=== PATIENT | female | born 1945 | race Caucasian/White ===

== ENCOUNTER 2018-01-11 09:07 | Emergency (ER) | payer OTHER ==
[~2018-01-11] VITALS: Ht 165.1 cm; Wt 72.7 kg
[~2018-01-11 09:07] MED LIST: AMLO5TAB2 PO; BENA20TA PO; SERT25TA83 PO
[2018-01-11 09:09] VITALS: BP 143/70; PULSE 88; RESP 16; TEMP 98.7; O2SAT 95
--- NOTE | 2018-01-11 09:19 | PD ---
HPI Chief Complaint: Injury Time Seen by Provider: 09:18 Travel History International Travel<30 days: No Contact w/Intl Traveler<30days: No Traveled to known affect area: No History of Present Illness HPI 72-year-old female came to the emergency room with history of right arm injury last night after she tripped over a blanket on the floor and fell. During the fall she hit her arm on a furniture. Since then she has been in significant pain. She says she has been unable to sleep. Every time she moves her arm the pain is severe. Patient says she took 781 mg aspirins for the pain and about 6 or 7 Advil but has not helped. She tried to ice it but it made the pain worse so she stopped icing it. Patient is otherwise on no blood thinners on a daily basis. She says that she jerked her neck when she fell and the neck has been hurting a little as well but the arm pain is worse. Vital signs are stable. [facility] Past Medical History Narrative Medical List of her past medical, surgical, social and family history is reviewed from the nursing note. Arthritis: Yes Asthma: No Autoimmune Disease: No Blood Disorders: No Anxiety: Yes Depression: No Heart Rhythm Problems: No Cancer: No Cardiovascular Problems: Yes High Cholesterol: Yes Chemotherapy: No Chest Pain: Yes Congestive Heart Failure: No COPD: No Cerebrovascular Accident: No Diabetes: No Endocrine: No GERD: No Glaucoma: No Genitourinary: Yes Hepatitis: No Hiatal Hernia: No Hypertension: Yes Immune Disorder: No Implanted Vascular Access Dvce: No Kidney Stones: No Musculoskeletal: Yes Neurologic: No Psychiatric: Yes Reproductive: No Respiratory: Yes Migraines: No Myocardial Infarction: No Radiation Therapy: No Renal Failure: No Seizures: No Sleep Apnea: No Thyroid Disease: No Ulcer: No ?: Not Past Surgical History Abdominal Surgery: Yes (BLADDER SLING MESH REPAIR) Cardiac Surgery: No Ear Surgery: No Eye Surgery: Yes (CATARACT GRACIE) Genitourinary Surgery: No Gynecologic Surgery: Yes (HYSTERECTOMY) Hysterectomy: Yes Oral Surgery: No Thoracic Surgery: No Other Surgery: Yes Social History Alcohol Use: Yes (OCASSIONALY) Tobacco Use: Yes (1-2 per day) Substance Use: No Allergies-Medications (Allergen,Severity, Reaction): Coded Allergies: morphine (Verified Adverse Reaction, Severe, Nausea/Vomiting, 01/11/18) Comments List of her allergies reviewed from the nursing note. Reported Meds & Prescriptions Reported Meds & Active Scripts Active Colace (Docusate Sodium) 100 Mg Capsule 100 Mg PO BID Hydrocodone-Acetaminophen 5-325 mg Tab 1 Tab PO Q6H PRN 10 Days Reported Sertraline (Sertraline HCl) 25 Mg Tab 25 Mg PO DAILY Benazepril (Benazepril HCl) 20 Mg Tab 20 Mg PO DAILY Amlodipine (Amlodipine Besylate) 5 Mg Tab 5 Mg PO DAILY Narrative Medication List of her home medications reviewed from the nursing note. Review of Systems Except as stated in HPI: all other systems reviewed are Neg Musculoskeletal: Positive: Pain Physical Exam Narrative GENERAL: Awake, alert, moderate distress SKIN: Focused skin assessment warm/dry. HEAD: Atraumatic. Normocephalic. EYES: Pupils equal and round. No scleral icterus. No injection or drainage. ENT: No nasal bleeding or discharge. Mucous membranes pink and moist. NECK: Trachea midline. No JVD. CARDIOVASCULAR: Regular rate and rhythm. No murmur appreciated. RESPIRATORY: No accessory muscle use. Clear to auscultation. Breath sounds equal bilaterally. GASTROINTESTINAL: Abdomen soft, non-tender, nondistended. Hepatic and splenic margins not palpable. MUSCULOSKELETAL: No obvious deformities. No clubbing. No cyanosis. No edema. Swelling mid right arm, decreased range of motion at the shoulder and elbow joint mainly due to the pain. Distal neurovascular bundle intact. NEUROLOGICAL: Awake and alert. No obvious cranial nerve deficits. Motor grossly within normal limits. Normal speech. PSYCHIATRIC: Appropriate mood and affect; insight and judgment normal. Data Data Last Documented VS Orders Orders Humerus (Min 2vws) (01/11/18 ) Shoulder, Complete (>2vws) (01/11/18 ) Acetamin-Hydrocod 325-5 Mg ([place] 5-325 (01/11/18 09:30) Spine, Cervical Compl([id number]) (01/11/18 ) Ondansetron Odt (Zofran Odt) (01/11/18 09:30) Support Splint (01/11/18 10:59) Ed Discharge Order (01/11/18 11:03) Sling Cradle Arm (01/11/18 ) MDM Medical Decision Making Medical Screen Exam Complete: Yes Emergency Medical Condition: Yes Medical Record Reviewed: Yes Differential Diagnosis Shoulder fracture, humerus fracture, elbow fracture, contusion Narrative Course 11:07 PM x-ray of the cervical spine, shoulder and humerus were within acceptable limits with no acute fractures. Patient was medicated for pain. I went back and reassessed her and she said pain was better. I let her know about the test results. I am comfortable discharging her home with an arm sling and pain medication prescription. I verbalized the discharge instructions and patient understood. Her was in the room as well. Procedures EKG Prior to Arrival: No Diagnosis Primary Impression: Contusion of arm, right Qualified Codes: S40.021A - Contusion of right upper arm, initial encounter Referrals: Primary Care Physician Additional Instructions: Take the medication as per the prescription direction. The pain medicine would make you groggy. Take it only if the pain is severe. You could take Advil/ ibuprofen/Motrin for the pain as well. The pain medication will make you constipated. There is stool laxatives prescription as well. Med/Other Pt SpecificInfo: Prescription(s) given Scripts Docusate Sodium (Colace) 100 Mg Capsule 100 MG PO BID for Prevent Constipation, #20 CAP 0 Refills Prov: Dominic Castillo MD 01/11/18 Hydrocodone-Acetaminophen (Hydrocodone-Acetaminophen) 5-325 mg Tab 1 TAB PO Q6H Y for PAIN for 10 Days, #40 TAB 0 Refills Prov: Dominic Castillo MD 01/11/18 Disposition: 01 DISCHARGE HOME Condition: Stable Dominic Castillo MD January 11, 2018 09:19
[2018-01-11] MEDS ORDERED: ONDANSETRON ODT 4 MG TAB PO ONE (09:30)
[2018-01-11] MEDS ORDERED: ACETAMINOPHEN/HYDROcodone 325 MG/5 MG TAB PO ONE (09:30)
--- NOTE | 2018-01-11 10:30 | RADRPT ---
EXAM DATE/TIME: 01/11/2018 09:45 [facility] COMPARISON: No previous studies available for comparison. INDICATIONS : Posterior neck pain after fall. MEDICAL HISTORY : None. SURGICAL HISTORY : Hysterectomy. ENCOUNTER: Initial ACUITY: 2 days PAIN SCORE: 7/10 LOCATION: c-spine FINDINGS: Five view examination was performed. Mild approximately 2 mm retrolisthesis of C5 on C6 and degenera tive spondylosis most prominently at C5-6 level with prominent osteophytes. Loss of normal cervical l ordosis. Remaining sagittal alignment is maintained. Vertebral body heights are intact. No acute bony fracture. The visualized dens is intact. Normal C1-2 relationship. Oblique views demonstrate bony ne ural foraminal narrowing at C5-6 and C6-7 most prominently on the left. Prevertebral soft tissues are within normal limits. CONCLUSION: 1. Mild 2 mm retrolisthesis of C5 on C6 with associated degenerative spondylosis at this level. Findi ngs are likely degenerative in etiology. May obtain flexion and extension views if there is significa nt clinical concern regarding ligamentous instability. 2. No acute fracture. Jhony Thornton MD on January 11, 2018 at 10:21 Board Certified Radiologist. This report was verified electronically.
--- NOTE | 2018-01-11 10:35 | RADRPT ---
EXAM DATE/TIME: 01/11/2018 09:51 [facility] COMPARISON: No previous studies available for comparison. INDICATIONS : Right shoulder pain after fall. MEDICAL HISTORY : None. SURGICAL HISTORY : Hysterectomy. ENCOUNTER: Initial ACUITY: 2 days PAIN SCORE: 8/10 LOCATION: Right shoulder FINDINGS: Multiple view examination of the right shoulder demonstrates no evidence of fracture or dislocation. The glenohumeral and acromioclavicular joints are anatomic. There is mild osteophyte formation at th e acromioclavicular joint. There is normal range of motion between internal and external rotation. Bony mineralization is normal. Visualized right lung is clear. CONCLUSION: 1. No acute fracture or dislocation. 2. Mild a.c. joint degenerative change. Jhony Thornton MD on January 11, 2018 at 10:27 Board Certified Radiologist. This report was verified electronically.
--- NOTE | 2018-01-11 10:37 | RADRPT ---
EXAM DATE/TIME: 01/11/2018 09:55 [facility] COMPARISON: No previous studies available for comparison. INDICATIONS : Right proximal humerus pain after fall. MEDICAL HISTORY : None. SURGICAL HISTORY : Hysterectomy. ENCOUNTER: Initial ACUITY: 2 days PAIN SCORE: 8/10 LOCATION: Right humerus FINDINGS: Two view examination of the right humerus demonstrates no evidence of fracture or dislocation. Bony mineralization is normal. The soft tissue structures are intact. CONCLUSION: 1. No acute fracture or dislocation. Jhony Thornton MD on January 11, 2018 at 10:34 Board Certified Radiologist. This report was verified electronically.
[2018-01-11] MEDS ORDERED: COLA100C5 PO (11:10)
[2018-01-11] MEDS ORDERED: HYDR-3516 PO (11:10)
== END 2018-01-11 11:00 | disposition home or self-care (01) ==
LOC: NEPD 09:07
DX: S40.021A Contusion of right upper arm, initial encounter (principal); M54.2 Cervicalgia; I10 Essential (primary) hypertension; E78.00 Pure hypercholesterolemia, unspecified; F41.9 Anxiety disorder, unspecified; W01.190A Fall on same level from slipping, tripping and stumbling with subsequent striking against furniture, initial encounter; Z72.0 Tobacco use; Z87.39 Personal history of other diseases of the musculoskeletal system and connective tissue; Z86.79 Personal history of other diseases of the circulatory system; Z87.448 Personal history of other diseases of urinary system; Z87.09 Personal history of other diseases of the respiratory system
CPT/HCPCS: 72050; 73030; 73060; 99284